=== PATIENT | male | born 1995 | race Caucasian/White ===

== ENCOUNTER 2016-11-02 10:01 | Emergency (ER) | payer OTHER ==
[~2016-11-02] VITALS: Ht 182.9 cm; Wt 97.6 kg
[2016-11-02 10:11] VITALS: TEMP 37; Ht 182.9 cm; Wt 97.6 kg
[2016-11-02 10:47] VITALS: BP 138/81; PULSE 66; O2SAT 98
--- NOTE | 2016-11-02 16:50 | EMERGENCY ROOM VISIT NOTE ---
History First contact with patient: 10:16 Chief Complaint: SORETHROAT Stated Complaint: SWOLLEN TONSILS History of Present Illness The patient is a 21 year old male who presents to the Emergency Room with complaints of sore throat symptoms off-and-on for the past few months. 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 The patient believes that he has had tonsillitis or pharyngitis at least 4 times over the winter months. He started with a new episode about 2 days ago that has rapidly progressed. He states that he is having difficulty with opening and closing his jaw. He was able to drink some water earlier today, but is not able to eat because of the level of pain in his throat. The patient does not recall fever or chills. He has not taken anything [id number] for his discomfort. He rates his pain an 8/10. Review of Systems More than 10 systems were reviewed and otherwise negative with the exception of history of present illness. Past Medical/Surgical History No chronic medical disease Family History No pertinent family history Social History Smoking Status: Never Smoker Occupation Status: [employer] student Current/Historical Medications No Active Prescriptions or Reported Meds Allergies Coded Allergies: Apple (Unverified Allergy, Unknown, ., 11/02/16) Banana (Unverified Allergy, Unknown, ., 11/02/16) Ruiz (Unverified Allergy, Unknown, ., 11/02/16) [place] (Unverified Allergy, Unknown, ., 11/02/16) Physical Exam Vital Signs Date Time Temp Pulse Resp B/P Pulse Ox O2 Delivery O2 Flow Rate FiO2 11/02/16 10:47 66 18 138/81 98 Room Air 11/02/16 10:12 97 Room Air 11/02/16 10:11 37.0 72 18 154/93 96 Room Air Pain Rating (0-10): 5.0 Physical Exam VITALS: Vitals are noted on the nurse's note and reviewed by myself. Vital signs stable. GENERAL: Well-developed, well-nourished, white male who appears in mild to moderate discomfort. Patient is cooperative with the examination. HEAD: Normocephalic atraumatic. MOUTH: Mucous membranes moist. There is noted swelling of the left side soft palate and left peritonsillar area highly concerning for peritonsillar abscess. Uvula is midline. No swelling under the tongue. Right side tonsil appears 2+ . NECK: Supple without nuchal rigidity. No lymphadenopathy. No thyromegaly. Cervical spine is nontender. HEART: Regular rate and rhythm without murmurs gallops or rubs. LUNGS: Clear to auscultation bilaterally without wheezes, rales or rhonchi. No retractions or accessory muscle use. Medical Decision & Procedures ED Course Physical exam and history were performed. Nursing notes and EMR were reviewed. Patient appears to have a left-sided peritonsillar abscess on examination. He has had sore throat symptoms for the past few days. The patient case was immediately discussed with ENT, Dr Pierce. The patient has stable vital signs and does have a safe method of transportation as a female fountain brush assembler will be driving. Because of this the patient will be discharged directly from the ER to go to see Dr Pierce for incision and drainage. The patient was given written directions to the office, as well as resources to call back to the ER if they have any difficulty with being seen or evaluated today. The patient will be discharged straight to ENT. The chart was completed utilizing [employer] Speech Voice Recognition Software. Grammatical errors, random word insertions, pronoun errors, and incomplete sentences are an occasional consequence of this system due to software limitations, ambient noise, and hardware issues. Any formal questions or concerns about the content, text, or information contained within the body of this dictation should be directly addressed to the provider for clarification. . Medical Decision Differential diagnosis: Etiologies such as viral syndrome, tonsillitis, streptococcal pharyngitis, mononucleosis, peritonsillar abscess, retropharyngeal abscess, otitis, pneumonia , influenza, as well as others were entertained. Impression Primary Impression: Peritonsillar abscess Departure Information Dispostion Other (Discharged to Dr Pierce's office) Condition GOOD Prescriptions No Active Prescriptions or Reported Meds Referrals No Doctor, Assigned (PCP) Josse Pierce MD Forms HOME CARE DOCUMENTATION FORM, IMPORTANT VISIT INFORMATION Patient Instructions My [facility] Additional Instructions You were seen and evaluated today on an emergency basis only. This is not a substitute for, or an effort to provide, complete comprehensive medical care. It is not possible to recognize and treat all injuries or illnesses in a single emergency department visit. For this reason it is recommended that you followup with Ear Nose and Throat, Dr Pierce, immediately following discharge from the ER. If you have difficulty reaching your appointment please call us at [phone]. Do not eat or drink anything prior to being seen by Dr Pierce You are welcome to return to the emergency department anytime with new, worsening, or concerning symptoms.
== END 2016-11-02 10:48 | disposition home or self-care (01) ==
LOC: C.EDB 10:03
DX: J36 Peritonsillar abscess (principal)

== ENCOUNTER → 2016-11-02 | Outpatient (CLI) | payer OTHER | END | disposition home or self-care (01) | LOC: C.LABSPEC 17:04 | DX: J36 Peritonsillar abscess (principal) ==